=== PATIENT | male | born 1980 ===

== ENCOUNTER 2017-10-26 22:12 | Emergency (ER) | payer BC ==
[2017-10-26] MEDS ORDERED: Sodium Chloride 0.9% 1,000 ML IV STA (23:11)
[2017-10-27 00:08] LABS: BASO # 0.1 K/uL (0.0-0.2); BASO % 0.8 % (0.0-2.0); EOS # 0.1 K/uL (0.0-0.7); EOS % 1.2 % (0.0-4.0); LYMPH # 1.5 K/uL (1.0-4.3); LYMPH % 19.2 % (20.0-40.0); MEAN CELL VOLUME 89.3 fl (80.0-94.0); MEAN CORPUSCULAR HEMOGLOBIN 30.4 pg (27.0-31.0); MEAN CORPUSCULAR HGB CONC 34.1 g/dL (33.0-37.0); MEAN PLATELET VOLUME 7.2 fl (7.2-11.7); MONO # 0.8 K/uL (0.0-0.8); MONO % 9.6 % (0.0-10.0); NEUT # 5.4 K/uL (1.8-7.0); NEUT % 69.2 % (50.0-75.0); RBC 4.94 Mil/uL (4.40-5.90); WHITE BLOOD COUNT 7.9 K/uL (4.8-10.8)
[2017-10-27 00:18] LABS: URINE BILIRUBIN NEGATIVE (NEGATIVE); URINE BLOOD NEGATIVE (NEGATIVE); URINE CLARITY SLIGHTY-CLOUDY (Clear); URINE COLOR YELLOW (YELLOW); URINE GLUCOSE (UA) NEG (Normal); URINE LEUKOCYTE ESTERASE NEG Leu/uL (Negative); URINE PROTEIN NEGATIVE (NEGATIVE); URINE UROBILINOGEN 0.2-1.0 mg/dL (0.2-1.0)
[2017-10-27 00:19] LABS: ALB/GLOB RATIO 1.2 (1.0-2.1); ALBUMIN 4.4 g/dL (3.5-5.0); ALT/SGPT 65 U/L (21-72); AST/SGOT 54 U/L (17-59); BLOOD UREA NITROGEN 22 mg/dl (9-20); CALCIUM 9.6 mg/dL (8.4-10.2); GFR AFRICAN-AMERICAN > 60; GFR NON-AFRICAN AMERICAN > 60; LIPASE 130 U/L (23-300)
--- NOTE | 2017-10-27 00:23 | CT ---
EXAM: CT Head Without Intravenous Contrast CLINICAL HISTORY: 37 years old, male; Pain; Headache TECHNIQUE: Axial computed tomography images of the head/brain without intravenous contrast. All CT scans at this facility use one or more dose reduction techniques, viz.: automated exposure control; ma/kV adjustment per patient size (including targeted exams where dose is matched to indication; i.e. head); or iterative reconstruction technique. Coronal and sagittal reformatted images were created and reviewed. COMPARISON: No relevant prior studies available. FINDINGS: Brain: Unremarkable. No hemorrhage. No significant white matter disease. No edema. Ventricles: Unremarkable. No ventriculomegaly. Bones/joints: Unremarkable. No acute fracture. Soft tissues: Unremarkable. Sinuses: Unremarkable as visualized. No acute sinusitis. Mastoid air cells: Unremarkable as visualized. No mastoid effusion. IMPRESSION: No acute intracranial abnormality.
--- NOTE | 2017-10-27 00:31 | ED PDOC ---
HPI: Headache Time Seen by Provider: 10/26/17 22:20 Chief Complaint (Nursing): Abdominal Pain History Per: Patient History/Exam Limitations: no limitations Current Symptoms Are (Timing): Better Additional Complaint(s): 37-year-old male reports he was on a boat fishing where he started to get chills , mild headache and felt nauseous. He states that he has gone fishing on a boat before and does not usually get sea sick. States symptoms subsided afterwards when he got off the boat. Reports tonight at 21:00 he developed headache that started occipital aspect of the scalp that radiates to front of his head and associated with chills, sore throat and vague abdominal pain. Pt reports headache better prior to arrival. (-) fever, (-) cough, (-) rash, (-) V/D, (-) urinary symptoms, (-) recent travels, (-) sick contacts (-) trauma, (-) injury, (-) dizziness. Past Medical History Reviewed: Historical Data, Nursing Documentation, Vital Signs Vital Signs: Last Vital Signs Temp 98.5 F 10/26/17 22:13 Pulse 56 L 10/26/17 22:13 Resp 16 10/26/17 22:13 BP 161/85 H 10/26/17 22:13 Pulse Ox 99 10/26/17 22:13 - Surgical History Surgical History: Tonsillectomy - Family History Family History: States: No Known Family Hx - Allergies Allergies/Adverse Reactions: Allergies Allergy/AdvReac Type Severity Reaction Status Date / Time No Known Allergies Allergy Verified 10/26/17 22:13 Review of Systems ROS Statement: Except As Marked, All Systems Reviewed And Found Negative Constitutional: Positive for: Chills. Negative for: Fever ENT: Positive for: Other (sore throat) Respiratory: Negative for: Cough Gastrointestinal: Positive for: Nausea, Abdominal Pain (vague) Neurological: Positive for: Headache. Negative for: Dizziness Physical Exam - Reviewed Nursing Documentation Reviewed: Yes Vital Signs Reviewed: Yes - Physical Exam Comments: GENERAL APPEARANCE: Patient is awake, alert, oriented x 3, in no acute distress. SKIN: Warm, dry; (-) cyanosis; (-) rash. HEAD: (-) scalp swelling or tenderness, (-) temporal artery tenderness. EYES: (-) conjunctival pallor, (-) scleral icterus. ENMT: (+) mild erythema to pharynx, (-) sinus tenderness; mucous membranes are moist, NECK: (+) FROM, (-) tenderness, (-) stiffness, (-) meningismus, (-) lymphadenopathy. CHEST AND RESPIRATORY: (-) rales, (-) rhonchi, (-) wheezes; breath sounds equal bilaterally. HEART AND CARDIOVASCULAR: (-) irregularity; (-) murmur, (-) gallop. ABDOMEN AND GI: Soft; (-) tenderness. EXTREMITIES: (-) deformity. NEURO AND PSYCH: Mental status as above. equipment services associate: Pupils equal and reactive; EOMI ; (-) facial asymmetry; tongue and uvula midline. Strength symmetric. - Laboratory Results Result Diagrams: 10/26/17 23:58 10/26/17 23:58 - ECG O2 Sat by Pulse Oximetry: 99 (RA) Pulse Ox Interpretation: Normal Medical Decision Making Medical Decision Making: Time: 23:10 Plan: - CT Head without contrast - CMP - Lipase - CBC - Chest X-Ray - Chest X-Ray - Sodium Chloride 0.9% 1,000 ml IV 1,000 mls/hr - Throat culture - Infecious Mononucleosis - Influenza A/B - Rapid Strep Group A Antigen - UA (-) Infectious Asotin Assay (-) Influenza a/b (-) Group A Beta Strep Ag CBC / CMP / UA wnl CXR : NAD, as read by PA. Time: 00:22 CT Head without contrast FINDINGS: Brain: Unremarkable. No hemorrhage. No significant white matter disease. No edema. Ventricles: Unremarkable. No ventriculomegaly. Bones/joints: Unremarkable. No acute fracture. Soft tissues: Unremarkable. Sinuses: Unremarkable as visualized. No acute sinusitis. Mastoid air cells: Unremarkable as visualized. No mastoid effusion. IMPRESSION: No acute intracranial abnormality. Repeat VS : T 98.4 P 60 BP 107/61 R 14 O2sat 97%RA. On re-evaluation, patient reports improvement of symptoms, denies any headache, dizziness, abdominal pain. On exam, patient remains AAOx3, in no acute distress , neck supple with FROM. Repeat neuro exam shows no focal findings. Diagnostic results d/w the patient in great detail. Based on history, exam and diagnostic results, plan will be for outpatient follow up. Patient instructed to follow-up with pmd in 1-2 days without fail. Advised to take medication as prescribed. Return to the emergency room at any time for any new or worsening symptoms. Patient states he fully agrees with and understands discharge instructions. States that he agrees with the plan and disposition. Verbalized and repeated discharge instructions and plan. I have given the patient opportunity to ask any additional questions. Scribe Attestation: Documented by Ken Echols, acting as a scribe for Nini oRdriguez PA-C Provider Scribe Attestation: All medical record entries made by the Scribe were at my direction and personally dictated by me. I have reviewed the chart and agree that the record accurately reflects my personal performance of the history, physical exam, medical decision making, and the department course for this patient. I have also personally directed, reviewed, and agree with the discharge instructions and disposition. Disposition - Clinical Impression Clinical Impression: Headache, Viral illness, Abdominal pain - Patient ED Disposition Is Patient to be Admitted: No Counseled Patient/Family Regarding: Studies Performed, Diagnosis, Need For Followup - Disposition Referrals: Andreia Ledezma MD [Staff Provider] - Disposition: Routine/Home Disposition Time: 01:00 Condition: IMPROVED Additional Instructions: Thank you for letting us take care of you today. You were treated for headache, abdominal pain, viral syndrome. The emergency medical care you received today was directed at your acute symptoms. Bed rest, drink plenty of fluids, tylenol for any pain / headache. It may take several days for your symptoms to resolve. Return to the Emergency Department if your symptoms worsen, do not improve, or if you have any other problems. Please contact your doctor in 2 days for re-evaluation and follow up. Bring any paperwork you were given at discharge with you along with any medications you are taking to your follow up visit. Our treatment cannot replace ongoing medical care by a primary care provider (PCP) outside of the emergency department. Thank you for allowing the [facility] team to be part of your care today. If you had an X-Ray / CT : A Radiologist will review the ED reading if any change in treatment is needed we will contact you. Instructions: Headache, Adult Forms: [facility] (Persian), [facility] ED School/Work Excuse - PA / CHOKER SETTER / Resident Statement MD/DO has reviewed & agrees with the documentation as recorded.
[2017-10-27 00:56] VITALS: BP 107/61; PULSE 60; RESP 14
[2017-10-27 01:21] VITALS: TEMP 98.6
[2017-10-27 01:22] VITALS: O2SAT 99
--- NOTE | 2017-10-27 12:53 | RAD ---
PROCEDURE: CHEST RADIOGRAPH, 1 VIEW HISTORY: abd pain COMPARISON: None available. FINDINGS: LUNGS: Clear. PLEURA: No pneumothorax or pleural fluid seen. CARDIOVASCULAR: Normal. OSSEOUS STRUCTURES: No significant abnormalities. VISUALIZED UPPER ABDOMEN: Normal. OTHER FINDINGS: None. IMPRESSION: No active disease.
== END 2017-10-27 01:19 | disposition home or self-care (01) ==
LOC: H.ER 22:12
DX: B34.9 Viral infection, unspecified (principal)
CPT/HCPCS: 70450; 71045; 80053; 81003; 83690; 85025; 86308; 87070; 87430; 87804; 99285; J7040